=== PATIENT | male | born 1970 | race Caucasian/White ===

== ENCOUNTER 2024-08-26 05:24 | Emergency (ER) | payer OTHER, SELFPAY ==
[2024-08-26] MEDS ORDERED: Lorazepam 2 MG/ML VIAL ONE (05:58)
[2024-08-26] MEDS ORDERED: Ketorolac Tromethamine 30 MG (1 mL) VIAL ONE (05:58)
[2024-08-26] MEDS ORDERED: Dexamethasone 10 MG/ML VIAL ONE (05:58)
[2024-08-26] MEDS ORDERED: fentaNYL 50 mcg/mL 1 mL Vial ONE (06:00)
[2024-08-26 06:08] LABS: #Basophils 0.04 10x3/uL (0.0-0.2); %Basophils 0.6 % (0.0-1.0); %Eosinophils 1.4 % (0.0-10.0); %Lymphocytes 28.7 % (21.0-51.0); %Monocytes 12.9 % (0.0-10.0); %Neutrophils 56.3 % (42.0-75.0); Hematocrit 42.7 % (42.0-52.0); Hemoglobin 15.1 g/dL (14.0-18.0); Mean Corpuscular HGB CONC 35.4 g/dL (32.0-36.0); Mean Corpuscular Volume 93.4 fL (78.0-98.0); Mean Platelet Volume 10.8 fL (7.4-10.4); Platelet Count 171 10x3/uL (130-400); RBC Distribution Width 11.7 % (11.5-14.5); Red Blood Cell (RBC) Count 4.57 mill/uL (4.70-6.10)
[2024-08-26 06:31] LABS: ALT (SGPT) 35 U/L (8-55); AST (SGOT) 21 U/L (5-34); Albumin 4.2 g/dL (3.5-5.0); Alkaline Phosphatase 82 U/L (40-110); Anion Gap 14 mmol/L (10-20); BUN (Urea Nitrogen) 16 mg/dL (8.4-25.7); Bilirubin, Total 0.8 mg/dL (0.2-1.2); Calc. Creatinine Clearance 0 mL/min (70-130); Calcium 8.9 mg/dL (7.8-10.44); Carbon Dioxide 22 mmol/L (22-29); Chloride 107 mmol/L (98-107); Estimated GFR 101; Globulin 3.4 g/dL (2.4-3.5); Glucose 126 mg/dL (70-105); Potassium 4.3 mmol/L (3.5-5.1); Protein, Total 7.6 g/dL (6.0-8.3); Sodium 139 mmol/L (136-145)
[2024-08-26 06:35] LABS: Troponin I Less than 0.010 ng/mL (< 0.028)
== END 2024-08-26 07:18 | disposition home or self-care (01) ==
LOC: ERS 05:24
DX: M54.12 Radiculopathy, cervical region (principal)
CPT/HCPCS: 72125; 80053; 83880; 84484; 85025; 85379; 93005; 96374; 96375; J1100; J1885; J2060; J3010